=== PATIENT | female | born 1950 | race Caucasian/White ===

== ENCOUNTER 2018-07-22 15:04 | Observation (INO) | payer MEDICARE ==
[~2018-07-22] VITALS: Ht 165.1 cm; Wt 74.6 kg
--- OUTSIDE RECORDS SUMMARY | ~2018-07-22 | XMS | Clinical Summary ---
Demographics + + + | Address | [address] | | | [address] | | | [place] [address] | + + + | Home Phone | | + + + | Preferred Language | Unknown | + + + | Marital Status | | + + + | Holiness Affiliation | Unknown | + + + | Race | Unknown | + + + | Ethnic Group | Unknown | + + + Author + + + | Author | [facility] | | | and [facility] | + + + | Organization | [facility] | | | and [place] | + + + | Address | Unknown | + + + | Phone | Unavailable | + + + Care Team Providers + +------+ + | Care Crane Operator Name | Role | Phone | + +------+ + PP | Unavailable | + +------+ + Allergies + + + +--------+ + | Active Allergy | Reactions | Severity | Noted | Comments | | | | | Date | | + + + +--------+ + | Erythromycin Base | | | | | + + + +--------+ + | Hydrocodone-Acetamin | | | | | | ophen | | | | | + + + +--------+ + Current Medications + + +-------+---------+------+------+-------+ | Prescription | Sig. | Disp. | Refills | Star | End | Statu | | | | | | t | Date | s | | | | | | Date | | | + + +-------+---------+------+------+-------+ | simvastatin | Take 80 mg by mouth | | | 07/10 | | Activ | | (ZOCOR) 80 mg tablet | Daily. | | | 02/26 | | e | | | | | | 12 | | | + + +-------+---------+------+------+-------+ | zolpidem (AMBIEN) | Take one half to one | | | 07/10 | | Activ | | 10 mg tablet | tablet by mouth at | | | 02/26 | | e | | | bedtime | | | 12 | | | + + +-------+---------+------+------+-------+ | Estradiol (ESTRING | RING | | | 07/10 | | Activ | | VA) | | | | 02/26 | | e | | | | | | 12 | | | + + +-------+---------+------+------+-------+ | | Take 25 mg by mouth | | | 07/10 | | Activ | | hydrochlorothiazide | Daily. | | | 02/26 | | e | | 25 mg tablet | | | | 12 | | | + + +-------+---------+------+------+-------+ | SUMAtriptan | Take one to two by | | | 07/10 | | Activ | | (IMITREX) 50 mg | mouth, limit four | | | 02/26 | | e | | tablet | day | | | 12 | | | + + +-------+---------+------+------+-------+ | LORazepam (ATIVAN) | Take 0.5 mg by mouth | | | 07/10 | | Activ | | 0.5 mg tablet | every 6 hours as | | | 02/26 | | e | | | needed. | | | 12 | | | + + +-------+---------+------+------+-------+ Active Problems + + + | Problem | Noted Date | + + + | UNSPECIFIED CONDUCTIVE HEARING LOSS | 08/07/2011 | + + + + + | Overview: ICD-10 Record update | + + + +---+ | INSOMNIA | | + +---+ | PREDIABETES | | + +---+ | HYPERCHOLESTEROLEMIA | | + +---+ | HYPERTENSION | | + +---+ | IMPACTED CERUMEN | | + +---+ Immunizations + + + + | Name | Dates Previously Given | Next Due | + + + + | PNEUMOCOCCAL | 11/09/2006 | | | POLYSACCHARIDE | | | | 23-VALENT (PPSV23) | | | + + + + | TD W/PRESERVATIVE, | 11/09/2005 | | | (ADOL/ADULT) | | | + + + + | ZOSTER, 1 DOSE | 11/09/2008 | | | (ADULT) | | | + + + + Social History + +-------+ +--------+------+ | Tobacco Use | Types | Packs/Day | Years | Date | | | | | Used | | + +-------+ +--------+------+ | Never Assessed | | | | | + +-------+ +--------+------+ + + + | Sex Assigned at | Date Recorded | | | | + + + | Not on file | | + + + Plan of Treatment + + + + + | Health Maintenance | Due Date | Last Done | Comments | + + + + + | Vaccine: | | 11/09/2005 | | | Dtap/Tdap/Td (1 - | 6 | | | | Tdap) | | | | + + + + + | Vaccine: Zoster (2 | | 11/09/2008 | | | of 3) | 9 | | | + + + + + | Vaccine: | | 11/09/2006 | | | Pneumococcal 65+ | 3 | | | | Low/Medium Risk (1 | | | | | of 2 - PCV13) | | | | + + + + + | Vaccine: Influenza | | | | | (#1) | 8 | | | + + + + + Results Not on filefrom Last 3 Months"
--- OUTSIDE RECORDS SUMMARY | ~2018-07-22 | XMS | Clinical Summary ---
Demographics + + + | Address | [address] | | | [address] | | | [place] [address] | + + + | Home Phone | | + + + | Preferred Language | Unknown | + + + | Marital Status | | + + + | Samaritan Affiliation | Unknown | + + + | Race | Unknown | + + + | Ethnic Group | Unknown | + + + Author + + + | Author | [facility] | | [facility] and [facility] | + + + | Organization | [facility] | | | and [place] | + + + | Address | Unknown | + + + | Phone | Unavailable | + + + Care Team Providers + +------+ + | Care Wheel Installer Name | Role | Phone | + [...]
[2018-07-22] MEDS ORDERED: LIPITOR20 MG PO (15:28)
[2018-07-22] MEDS ORDERED: ALDACTONE25 MG PO (15:28)
[2018-07-22] MEDS ORDERED: LOSARTAN-HCTZ1 EAC1 PO (15:28)
[2018-07-22] MEDS ORDERED: NORVASC5 MG PO (15:28)
[2018-07-22] MEDS ORDERED: ATIVAN0.5 MG PO (15:29)
[2018-07-22] MEDS ORDERED: ASPIRIN81 MG PO (15:29)
[2018-07-22] MEDS ORDERED: IMITREX50 MG PO (15:29)
[2018-07-22] MEDS ORDERED: AMBIEN10 MG PO (15:30)
--- NOTE | 2018-07-22 18:38 | NUR ---
68YR OLD WOMAN ADMITTED FROM ER VIA STRETCHER TO ROOM 120 ACCOMPANIED BY . PT IS ALERT, ORIENTED IN GOOD SPIRITS. ABLE TO STAND AND TRANSFER SELF ONTO BED. DENIES ANY DIZZINESS OR WEAKNESS. ORIENTED TO ROOM AND CALL LIGHT. IN GOOD SPIRITS. TELE #1 PLACED SR. CALL LIGHT IN EASY REACH. DINNER ORDERED.
--- NOTE | 2018-07-22 19:18 | NUR ---
PT REQUESTED IV SITE BE MOVED. IV RESTARTED INTO R HAND USING 21G. IVF INFUSING. ASKED TO TAKE ATIVAN FOR ANXIETY. DR CRUZ GAVE ORDER. MEDICATION GIVEN. PT VISITING WITH AND DAUGHTER.
--- NOTE | 2018-07-22 19:45 | NUR ---
CHARGE NURSE ROUNDING NOTE: AWAKE, SITTING UP IN BED, NO C/O LIGHTHEADNESS, TELE INPLACE, FLUIDS AND CALL LIGHT AT BEDSIDE, PT VISITING WITH FAMILY. HOME ATIVAN MEDS SENT HOME WITH DAUGHTER.
--- NOTE | 2018-07-22 20:00 | NUR ---
RECEIVED REPORT AT 1930, FOUND PT IN BED WITH DAUGHTER AT BEDSIDE. PT OVERALL SEEMED A LITTLE ANXIOUS. I WILL CONTINUE TO MONITOR.
--- NOTE | 2018-07-22 20:42 | NUR ---
VITALS AND I&OS DONE AND CHARTED. FRESH ICE WATER AND CRACKERS GIVEN. BEDSIDE TABLE AND CALL LIGHT IN REACH. WATER GIVEN TO THE DAUGHTER WELL.
--- NOTE | 2018-07-22 21:39 | EKG ---
[facility] [address] [facility] [place] [address] Signed Normal sinus rhythm Left bundle branch block Abnormal ECG No previous ECGs available Confirmed by CLEMENTINE CHAUDHRY MD ([id number]) on 07/22/2018 9:38:50 PM Electronically Signed By: CLEMENTINE CHAUDHRY MD 07/22/18 2139 PATIENT NAME: VEOR TAVAREZ Electrocardiogram DATE OF : 46 PHYSICIAN: CLEMENTINE CHAUDHRY MD REPORT #: [id number] REPORT IS CONFIDENTIAL AND NOT TO BE RELEASED WITHOUT AUTHORIZATION
--- NOTE | 2018-07-22 22:00 | NUR ---
V/S ARE WDL OVERALL WITH AN ELEVATED SBP IN THE 150'S. PT SEEMS MORE RELAXED AT THIS TIME AND WAS WILLING TO GIVE HER DAUGHTER THE "HOME" ATIVAN. ALL LOBES ARE CLEAR, PT AT THIS TIME IS IN SINUS RHYTHM. PT DID HAVE SOME MULTIFORM PVC'S EARLIER. PT DENIES DIZZINESS SINCE START OF SHIFT AND IS DOING WELL WALKING TO BATHROOM. NO EDEMA NOTED IN LEGS. PT DOES HOWEVER HAVE SOME VERY SLIGHT NON-PITTING EDEMA IN BOTH ARMS. OVERALL STRENGTH IS +5. PT HAS A SLIGHT TREMOR PRESENT WITH ARMS OUTSTRETCHED. WILL CONTINUE TO MONITOR. NO OTHER CONCERNS AT THIS TIME.
--- NOTE | 2018-07-23 | NUR ---
ASSISTED PT TO AND FROM BATHROOM. PT DENIES DIZZYNESS AND DOES NOT SHOW ANY WEAKNESS OR UNSTEADY GAIT WHILE WALKING. PT ALSO DENIES PAIN. PT SO FAR HAS BEEN UNABLE TO FALL ASLEEP. PT HAS NO CONCERNS AT THIS TIME. URINE OUTPUT IS STELLAR.
--- NOTE | 2018-07-23 02:12 | NUR ---
VITALS DONE AND CHARTED. HELPED PT TO THE BATHROOM AND BACK TO BED. BEDSIDE TABLE AND CALL LIGHT IN REACH. PT NEEDS NOTHING ELSE AT THIS TIME.
--- NOTE | 2018-07-23 04:00 | NUR ---
PT AT THIS TIME APPEARS TO BE SLEEPING. NO NEW CONCERNS AT THIS TIME.
--- NOTE | 2018-07-23 05:30 | NUR ---
PT DID NOT SLEEP WELL THIS SHIFT. HR AT START OF SHIFT WAS IN THE 90'S. AT THAT TIME PT WAS ANXIOUS. AT THIS TIME HR IS IN THE 70'S AND PT OVERALL HAS DOES NOT APPEAR ANXIOUS AT THIS TIME. ALL LOBES ARE CLEAR, S1 S2 NOTED, ABD SOUNDS ARE PRESENT, NO EDEMA NOTED. PT IS AAO X4. PT HAS DENIED PAIN AND DIZZINES ALL SHIFT. PT DOES NOT APPEAR UNSTEADY WHEN WALKING. "HOME" ATIVAN WAS TAKEN AWAY BY DAUGHTER LAST NIGHT. SO FAR PT RECEIVED 0.5MG PO ATIVAN X2 THIS SHIFT. V/S ARE WDL, OUTPUT IS GREAT. NO NEW CONCERNS AT THIS TIME
--- NOTE | 2018-07-23 07:05 | NUR ---
RECEIVED BEDSIDE REPORT PT A/O IN BED. DENIES PAIN OR NEEDS AT THIS TIME. NS @ 100ML/HR INFUSING IN RIGHT HAND IV. CALL LIGHT IN REACH.
--- NOTE | 2018-07-23 08:15 | NUR ---
SPOKE WITH PATIENT IN ROOM. PATIENT DENIES ANY BARRIERS TO RETURNING HOME AT DISCHARGE. STATES SHE WAS SUPPOSED TO SEE HER PCP TODAY AT 10:30AM. DISCUSSED THAT SHE NEEDS TO RESCHEDULE WITHIN A WEEK IF SHE HAS TO CANCEL THAT APPOINTMENT. NO FURTHER QUESTIONS AT THIS TIME. DR CHAUDHRY AND STAFF UPDATED ON APPOINTMENT ISSUE.
[2018-07-23] MEDS ORDERED: ASPIRIN EC81 MG PO (08:53)
[2018-07-23] MEDS ORDERED: MACULAR VITAMI1 EACH PO (09:04)
--- NOTE | 2018-07-23 09:07 | NUR ---
MED REC COMPLETE WITH [facility] REFILL HISTORY AND PATIENT INTERVIEW.
--- NOTE | 2018-07-23 09:17 | NUR ---
IV SL AND TELE DC'D PER ORDERS. SBA TO BATHROOM. PT TOLERATING WELL NO DIZZINESS NOTED. CALL LIGHT IN REACH.
== END 2018-07-23 10:30 | disposition home or self-care (01) ==
LOC: ED 15:04 → MS 15:06
PROVIDERS: ADMIT Internal Medicine
DX: R55 Syncope and collapse (principal); I10 Essential (primary) hypertension; I44.7 Left bundle-branch block, unspecified; E87.8 Other disorders of electrolyte and fluid balance, not elsewhere classified; Z79.899 Other long term (current) drug therapy; Z87.891 Personal history of nicotine dependence; Z88.8 Allergy status to other drugs, medicaments and biological substances; Z79.82 Long term (current) use of aspirin
CPT/HCPCS: 36415; 71046; 80048; 80053; 81001; 83735; 84484; 85025; 93005; 93010; 96374; 99285; G0378; J3475; J7030